=== PATIENT | male | born 2000 | race Two or more races ===

== ENCOUNTER 2025-03-25 05:39 | Emergency (ER) | payer OTHER, SELFPAY ==
[2025-03-25 05:44] VITALS: BP 184/124; PULSE 97; RESP 20; TEMP 36.8; O2SAT 96
[2025-03-25 05:46] VITALS: BMI 33.7
[2025-03-25 06:08] VITALS: BP 179/119; PULSE 87; RESP 18; O2SAT 97
[2025-03-25 06:10] VITALS: BP 181/112
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
[2025-03-25 06:34] VITALS: BP 176/125; PULSE 98
[2025-03-25 06:37] VITALS: BP 176/125; PULSE 81; RESP 18; TEMP 36.4; O2SAT 98
== END 2025-03-25 06:58 | disposition home or self-care (01) ==
LOC: SERX 06:56
PROVIDERS: Emergency Provider Family Medicine; PCP Family Medicine
DX: Z02.89 Encounter for other administrative examinations (principal); I10 Essential (primary) hypertension
CPT/HCPCS: 99281